=== PATIENT | female | born 1990 | race Caucasian/White ===

== ENCOUNTER 2018-10-20 09:53 | Emergency (ER) | payer OTHER ==
[~2018-10-20] VITALS: Ht 167.6 cm; Wt 63.5 kg
== END 2018-10-20 20:56 | disposition home or self-care (01) ==
LOC: ER 09:53 → EDBD 10:28 → ER 20:56
DX: B34.9 Viral infection, unspecified (principal)

== ENCOUNTER 2018-11-09 07:35 | Inpatient (IN) | payer OTHER ==
[~2018-11-09] VITALS: Ht 167.6 cm; Wt 64.4 kg
[2018-11-10] MEDS ORDERED: ULTRACET PO (09:17)
== END 2018-11-10 14:02 | disposition home or self-care (01) | DRG 743 ==
LOC: CIR.AMB 07:35 → O/R 11:11 → SURG 11:11 → CIR.AMB 15:15 → SURG 11-10 14:02
PROVIDERS: Obstetrics & Gynecology Gynecology
PROC: 0U524ZZ Destruction of Bilateral Ovaries, Percutaneous Endoscopic Approach (ICD-10-PCS; 2018-11-09)
PROC: 0UB24ZZ Excision of Bilateral Ovaries, Percutaneous Endoscopic Approach (ICD-10-PCS; principal; 2018-11-09 07:00)
DX: N80.1 Endometriosis of ovary (principal)